=== PATIENT | female | born 1955 | race Caucasian/White ===

== ENCOUNTER → 2019-08-18 | Outpatient (CLI) | payer BC, OTHER ==
[~2019-08-18] MED LIST: DICY20TA11 PO; ESTR625TA PO; LISI-538 PO; OMEP40CA97 PO; PROBCAP4 PO; RANI1TAB38 PO
--- NOTE | 2019-08-18 09:37 | REP ---
Clinical: Abdominal pain and nausea. Technique: Real time cadena scale ultrasound examination using curved array transducer. Findings: The liver demonstrates coarsened hepatic echotexture approximately three hyperechoic areas in the right lobe measuring 5 mm, 6 mm, and 11 mm each as well as a 9 mm septated cyst in the left lobe. Pancreas is normal in appearance. The gallbladder is unremarkable and without gallstones, wall thickening, or pericholecystic fluid. No biliary ductal dilatation is appreciated and the common bile duct measures 3.6 mm diameter. The right kidney is normal in reniform shape without hydronephrosis and measures 10.1 x 4.4 x 3.7 cm complex cortical cyst measuring 12 mm diameter. No ascites. Visualized abdominal aorta normal. Impression: 1. Possible small scattered hepatic hemangiomas and sub centimeter hepatic cyst. 2. Complex 12 mm right renal cyst. 3. Above findings may warrant pre and postcontrast CT of the abdomen for further, more definitive evaluation. Electronically Signed by Darryl Forde MD 08/18/2019 09:28 A
== END ==
LOC: M RAD 08:45
PROVIDERS: ATTEND Internal Medicine Gastroenterology
DX: N28.1 Cyst of kidney, acquired (principal); R11.0 Nausea

== ENCOUNTER → 2019-08-28 | Outpatient (CLI) | payer BC ==
[~2019-08-28] MED LIST changes: +GLUCAGON FOR INJ 1 MG VIAL (J1610) As Ordered ONE; +ISOVUE-370 76% 100ML VIAL (Q9967) As Ordered ONE; +VoLumen 0.1% SUSPENSION 450ML BOTTLE As Ordered ONE
--- NOTE | 2019-08-28 18:37 | REP ---
CT Enterography: With IV and oral contrast. History: Abnormal weight loss. Diarrhea. Epigastric pain. Comparison study: Comparison sonography August 18, [address] enterography Technique: The patient ingested oral Volumen for PO contrast per protocol. 0.6 mg of intravenous glucagon is administered. 100 ml of Isovue 370 is given intravenously for intravenous contrast. Helical scanning is acquired. Arterial phase and delayed phase imaging was acquired. Thick slab coronal and sagittal MIP images are generated. In addition coronal and sagittal multiplanar re-formation images are generated and reviewed along with axial images. 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 The lung bases are clear on axial CT images. Liver and spleen are normal in size homogeneous in texture. There is a tiny accessory splenule. There is a left hepatic cyst measuring 1 cm in diameter. There is a 1.4 cm nonenhancing low density area in the left lobe which may be a complex cyst. There are two other right lobe hepatic cysts which are small. There is a there is a 1.0 cm peripheral cyst in the right mid kidney. The renal arteries are bilaterally duplicated with small upper pole branch is noted bilaterally. There is vascular calcification in the aorta without evidence of aneurysm. No other vascular abnormality is appreciated. No abnormalities noted in the gallbladder or pancreas. No adrenal lesion is seen. Uterus is tipped to the right and appears retroverted somewhat. No abnormal bowel wall thickening or hyper enhancement is seen. No obstructive lesion is seen. No bowel wall mass lesion is observed. Impression: Hepatic and renal cysts as above. Otherwise negative. Electronically Signed by Rashawn Espinoza MD 08/28/2019 08:02 P
== END ==
LOC: M RAD 12:02
PROVIDERS: ATTEND Internal Medicine Gastroenterology
DX: N28.1 Cyst of kidney, acquired (principal); K76.89 Other specified diseases of liver
CPT/HCPCS: 74177; J1610; Q9967

== ENCOUNTER → 2019-09-18 | Outpatient (CLI) | payer BC ==
[~2019-09-18] MED LIST changes: -GLUCAGON FOR INJ 1 MG VIAL (J1610) As Ordered ONE; -ISOVUE-370 76% 100ML VIAL (Q9967) As Ordered ONE; -VoLumen 0.1% SUSPENSION 450ML BOTTLE As Ordered ONE
--- NOTE | 2019-09-18 11:48 | REP ---
Hepatobiliary scan and gallbladder ejection fraction: History: Nausea. Vomiting. Weight loss. Mid abdominal pain. Technique: 6.6 mCi of technetium-99m mebrofenin was injected and sequential anterior images are acquired. 65 minutes after the mebrofenin injection, the patient consumed 8 ounces Ensure and an additional 60 minutes of imaging was acquired. Regions of interest are plotted around the gallbladder. Findings: The initial hepatocellular parenchymal uptake phase is normal and homogeneous. Intra- and extra-hepatic bile ducts are labeled by the 10 -minute image. The gallbladder is first labeled on the 10 -minute image. There is normal washout from the liver parenchyma into the gallbladder and small intestine on subsequent images. The gallbladder ejection fraction is 39 %. Values greater than 35 % are considered normal with this technique. Impression: Normal hepatobiliary scan and normal gallbladder ejection fraction. Electronically Signed by Rashawn Espinoza MD 09/18/2019 11:40 A
== END ==
LOC: M RAD 08:01
PROVIDERS: ATTEND Internal Medicine Gastroenterology
DX: K82.8 Other specified diseases of gallbladder (principal); R11.0 Nausea
CPT/HCPCS: 78227; A9537; J2805

== ENCOUNTER 2019-11-06 10:03 | Day surgery (SDC) | payer BC ==
[~2019-11-06] VITALS: Ht 162.6 cm; Wt 48.4 kg
[~2019-11-06 10:03] MED LIST changes: +NS 1,000 ML IV ONE
[2019-11-06] MEDS ORDERED: LIDOCAINE 2% INJ 100 MG/5 ML SDV (FOR ANES.) As Ordered ONE (11:37)
[2019-11-06] MEDS ORDERED: propofoL 200 MG/20 ML VIAL As Ordered ONE (11:37)
--- NOTE | 2019-11-06 11:47 | ROOR ---
Patient Name: Mercedes Hoover Procedure Date: 11/06/2019 11:14 AM Date of : 1955 Age: 64 Room: [facility] Gender: Female Note Status: Finalized Procedure: Upper GI endoscopy Indications: Epigastric abdominal pain, Abdominal distention, Nausea Providers: Faheem ROBERTSON MD Referring MD: Rhiannon Bush ([place]), OLIVE KNOCKER Requesting Provider: Medicines: Monitored Anesthesia Care Complications: No immediate complications. Procedure: Pre-Anesthesia Assessment: - The heart rate, respiratory rate, oxygen saturations, blood pressure, adequacy of pulmonary ventilation, and response to care were monitored throughout the procedure. The Endoscope was introduced through the mouth, and advanced to the second part of duodenum. The upper GI endoscopy was accomplished without difficulty. The patient tolerated the procedure well. Findings: The esophagus was normal. The stomach was normal. The examined duodenum was normal. Impression: - Normal esophagus. - Normal stomach. - Normal examined duodenum. - No specimens collected. Recommendation: - Observe patient's clinical course. Faheem Robertson MD Faheem ROBERTSON MD 11/06/2019 11:47:15 AM Electronically signed by Faheem ROBERTSON MD Number of Addenda: 0 Note Initiated On: 11/06/2019 11:14 AM Estimated Blood Loss: Estimated blood loss: none.
--- NOTE | 2019-11-06 11:51 | ROOR ---
Patient Name: Mercedes Hoover Procedure Date: 11/06/2019 11:16 AM Date of : 1955 Age: 64 Room: [facility] Gender: Female Note Status: Finalized Procedure: Colonoscopy Indications: Generalized abdominal pain, Suspected irritable bowel syndrome, Irritable bowel syndrome with diarrhea, Diarrhea Providers: Faheem CARO MD Referring MD: Rhiannon HernandezR[place]) [employer] Requesting Provider: Medicines: Monitored Anesthesia Care Complications: No immediate complications. Procedure: Pre-Anesthesia Assessment: - The heart rate, respiratory rate, oxygen saturations, blood pressure, adequacy of pulmonary ventilation, and response to care were monitored throughout the procedure. The Colonoscope was introduced through the anus and advanced to 10 cm into the ileum. The colonoscopy was performed without difficulty. The patient tolerated the procedure well. The quality of the bowel preparation was good. Findings: The perianal and digital rectal examinations were normal. Retroflexion in the right colon was performed. The colon (entire examined portion) appeared normal. The terminal ileum appeared normal. Biopsies for histology were taken with a cold forceps from the entire colon for evaluation of microscopic colitis. Impression: - Small internal hemorrhoids. - The entire colon is normal. - The examined portion of the ileum was normal. - Biopsies were taken with a cold forceps from the entire colon for evaluation of microscopic colitis. - (Irritable Bowel Syndrome/IBS suspected.) Recommendation: - Use Bentyl (dicyclomine) 20 mg PO Q 4-6 hrs PRN 30 min AC. - Use fiber, for example Citrucel, Fibercon, Konsyl or Metamucil. - Lactose free diet. - Telephone endoscopist for pathology results in 2 weeks. Faheem Caro MD Faheem CARO MD 11/06/2019 11:51:31 AM Electronically signed by Faheem CARO MD Number of Addenda: 0 Note Initiated On: 11/06/2019 11:16 AM Estimated Blood Loss: Estimated blood loss: none.
[2019-11-06 12:10] VITALS: BP 140/60
== END 2019-11-06 12:14 | disposition home or self-care (01) ==
LOC: M OPP 10:03
PROVIDERS: ATTEND Internal Medicine Gastroenterology
DX: K64.8 Other hemorrhoids (principal); K58.0 Irritable bowel syndrome with diarrhea; R14.0 Abdominal distension (gaseous); R11.0 Nausea; R10.13 Epigastric pain; R19.7 Diarrhea, unspecified; Z79.899 Other long term (current) drug therapy; Z88.0 Allergy status to penicillin; Z83.79 Family history of other diseases of the digestive system